=== PATIENT | female | born 1955 | race Caucasian/White ===

== ENCOUNTER 2017-02-11 15:43 | Outpatient (CLI) | payer OTHER ==
--- NOTE | 2017-02-11 16:05 | DIAGNOSTIC IMAGING REPORT ---
PROCEDURE: XR CHEST 2 VIEW INDICATION: COUGH TECHNIQUE: PA and lateral view. COMPARISON: None. FINDINGS: Hyperinflation with bullae in both upper lobes. No infiltrates, pulmonary nodules or effusions. Cardiovascular structures are normal. Mild dextroscoliosis. IMPRESSION: 1. COPD 2. Results discussed with CORINA Gunderson
--- NOTE | 2017-02-11 21:08 | DIAGNOSTIC IMAGING REPORT ---
PROCEDURE: CT THORAX ABD PELVIS W/CONT INDICATION: BRAIN MASS TECHNIQUE: 100 ml of Isovue 300 injected intravenously and axial images were obtained of the entire thorax, abdomen, and pelvis with sagittal and coronal reformations. COMPARISON: None. FINDINGS: THORAX: Left high paratracheal/paraesophageal lymph node measuring 11 mm (series 3 image 11). Bulky adenopathy in the aorticopulmonary window/left lower paratracheal region. Lymph node mass measuring about 3.6 x 2.1 cm. Mildly enlarged precarinal and subcarinal lymph nodes. Left hilar adenopathy. Surgical clips in the right axilla. Normal thyroid gland. Moderately severe emphysematous changes in the upper lobes bilaterally. No focal pulmonary parenchymal nodule, mass, or consolidation. There is scarring posteromedially in the right upper lobe. The airway is patent without endobronchial nodule.. Normal heart size and vascularity. No effusion. No anterior or posterior mediastinal mass. Deformity of a healed right lateral fifth rib fracture. No suspicious osseous lesions. ABDOMEN: The liver, gallbladder, adrenal glands, spleen, pancreas, kidneys, retroperitoneal vasculature and ureters appear normal. Mild aortic atherosclerotic calcification. No unusual calcifications. No suspicious mass or adenopathy. The stomach and other bowel loops appear normal. No mesenteric inflammation. Intact anterior abdominal wall. No free fluid or free air. PELVIS: Appendix and uterus are surgically absent. Normal pelvic bowel loops, and colon. Normal partially filled urinary bladder, pelvic vessels, and lymph nodes. No suspicious adenopathy, soft tissue mass, or free pelvic fluid. No suspicious osseous lesions. Degenerative facet change at the L5-S1 level. IMPRESSION: 1. Mediastinal and left hilar lymphadenopathy without a discrete left lung primary neoplasm or inflammatory process. 2. No definite primary neoplasm in the chest, abdomen, or pelvis. 3. Moderately severe bilateral upper lobe emphysema. 4. Surgically absent uterus and appendix. All CT scans at this facility use dose modulation, iterative reconstruction, and/or weight-based dosing when appropriate to reduce radiation dose to as low as reasonably achievable.
== END 2017-02-11 23:00 ==
LOC: XR SRH 15:43
DX: J43.9 Emphysema, unspecified (principal); R59.1 Generalized enlarged lymph nodes